=== PATIENT | male | born 1950 | race Caucasian/White ===

== ENCOUNTER → 2021-06-25 | Outpatient (CLI) | payer OTHER | LOC: KOH-I 10:45 | DX: M86.9 Osteomyelitis, unspecified (principal) | CPT/HCPCS: 73718 ==

== ENCOUNTER → 2021-10-22 | Outpatient (CLI) | payer OTHER | LOC: KOH-I 11:25 | DX: Z01.810 Encounter for preprocedural cardiovascular examination (principal) | CPT/HCPCS: 93926 ==